=== PATIENT | female | born 1960 | race Caucasian/White ===

== ENCOUNTER → 2021-05-11 | Outpatient (CLI) | payer OTHER ==
[~2021-05-11] MED LIST: ATIVAN0.5 MG; MACROBID 100 M100 M1 PO; PHENERGAN 25 MG25 M1 PO; PHENERGAN50 MG RC; PYRIDIUM100 MG PO; TAMOXIFEN; TOPAMAX 100 MG100 MG PO; XANAX 1 MG TABLE1 MG PO; ZOFRAN ODT4 MG PO
== END ==
LOC: MRI 07:13
PROVIDERS: ATTEND Orthopaedic Surgery
DX: S82.65XA Nondisplaced fracture of lateral malleolus of left fibula, initial encounter for closed fracture (principal); S96.912A Strain of unspecified muscle and tendon at ankle and foot level, left foot, initial encounter; M25.472 Effusion, left ankle; X58.XXXA Exposure to other specified factors, initial encounter; Y93.89 Activity, other specified; Y92.89 Other specified places as the place of occurrence of the external cause; Y99.8 Other external cause status